=== PATIENT | male | born 1940 | race Caucasian/White ===

== ENCOUNTER 2016-09-28 03:00 | Emergency (ER) | payer OTHER, MEDICARE ==
[2016-09-28 03:19] VITALS: TEMP 97.9
[2016-09-28] MEDS ORDERED: SILVER NITRATE APPLICATOR 1 APPL TP ONE ×2 (03:22→03:50)
[2016-09-28] MEDS ORDERED: PHENYLEPHRINE 0.25% NASAL 15 ML SPRAY ONE (03:23)
[2016-09-28] MEDS ORDERED: ONDANSETRON DISINTEGRATING 4 MG TAB PO ONE (03:44)
[2016-09-28] MEDS ORDERED: PHENYLEPHRINE 0.5% NASAL 15 ML SPRAY EACHNARE ONE (03:50)
--- NOTE | 2016-09-28 04:18 | EDPHY ---
H & P Stated Complaint: epistaxis seen yesterday at [facility] Time Seen by Provider: 09/28/16 03:44 HPI/ROS: Chief Complaint: Epistaxis HPI: 68-year-old male with a history of recurrent epistaxis in the past. He was seen at the ENT clinic yesterday with a nose bleed and had cautery performed. Patient states that he continued bruise to the course today. He follows instructions in place an Afrin-soaked cotton ball in his nostril but is continuing to have bleeding. He has been swallowing blood and feeling nauseated. Has not had any vomiting. No fainting. No chest pain or shortness of breath. He takes Plavix. ROS: 10 point Review of Systems is negative except as noted in the HPI. PMH: Coronary artery disease, epistaxis Social History: No smoking, no alcohol, no recreational drug use Family History: non-contributory Physical Exam: Gen: Awake, Alert, No Distress HEENT: His active bleeding from a anterior bleeding site on his septum, oozing, no active arterial bleeding Eyes: PERRLA, EOMI Mouth: Moist mucosa Ext: no edema, non-tender Skin: no rash Neuro: CN II-XII intact, Sensation grossly intact, Strength 5/5 in bilateral upper and lower extremities - Personal History Current Tetanus/Diphtheria Vaccine: Yes Current Tetanus Diphtheria and Acellular Pertussis (TDAP): Yes - Medical/Surgical History Hx Asthma: No Hx Chronic Respiratory Disease: No Hx Diabetes: No Hx Cardiac Disease: Yes Hx Renal Disease: No Hx Cirrhosis: No Hx Alcoholism: No Hx HIV/AIDS: No Hx Splenectomy or Spleen Trauma: No Other PMH: ARTERIAL STENT, htn - Social History Smoking Status: Never smoked Constitutional: Initial Vital Signs Temperature (C) 36.6 C 09/28/16 03:11 Heart Rate 98 09/28/16 03:11 Respiratory Rate 18 09/28/16 03:11 Blood Pressure 111/71 09/28/16 03:11 O2 Sat (%) 98 09/28/16 03:11 O2 Delivery Mode Room Air Allergies/Adverse Reactions: No Known Allergies Allergy (Unverified 03/06/15 15:30) Home Medications: Medication Instructions Recorded ASPIRIN 03/06/15 Allopurinol 03/06/15 Avapro 03/06/15 Lipitor 03/06/15 Plavix 03/06/15 Tamsulosin HCl 03/06/15 Zetia 03/06/15 Medical Decision Making Procedures: Procedure: Epistaxis control. After verbal consent was obtained, the patient was anesthetized with Abram- Synephrine spray. The anterior epistaxis was identified. The patient was treated with a far 0.5 cm anterior rhino rocket. Following the procedure the patient was re-examined and the bleeding was well controlled. The patient tolerated the procedure well. The procedure was performed by myself. - Data Points Medications Given: Discontinued Medications Ondansetron HCl (Zofran Odt) 4 mg PO EDNOW ONE Stop: 09/28/16 03:45 Last Admin: 09/28/16 03:54 Dose: 4 mg Departure - Departure Disposition: Home, Routine, Self-Care Clinical Impression: Acute anterior epistaxis Condition: Good Instructions: Nosebleed (ED) Additional Instructions: Follow up [facility] later today as scheduled. Return to the emergency department for increasing bleeding, worsening headache, nausea, vomiting, or any other concerns. Referrals: Patient,NotPresent [Primary Care Provider] - As per Instructions
[2016-09-28 04:32] VITALS: BP 115/65; PULSE 87; RESP 16; O2SAT 95
== END 2016-09-28 04:32 | disposition home or self-care (01) ==
PROC: 2Y41X5Z Packing of Nasal Region using Packing Material (ICD-10-PCS; principal; 2016-09-28)
DX: R04.0 Epistaxis (principal); I25.10 Atherosclerotic heart disease of native coronary artery without angina pectoris; I10 Essential (primary) hypertension; Z79.82 Long term (current) use of aspirin